=== PATIENT | female | born 1955 | race African-American/Black ===

== ENCOUNTER → 2018-10-19 | Outpatient (CLI) | payer BC, OTHER ==
[~2018-10-19] MED LIST: CLARITIN 1010 MG/TAB PO; LYRICA 150MG C150 MG PO; MIRTAZAPINE7.5 MG PO; PLAQUENIL 200M200 MG PO; PRINIVIL40 MG PO; SAVELLA50 MG PO; SINGULAIR 110 MG/TAB PO; TOPROL XL100 MG PO
== END ==
LOC: COL.RAD 06:29
DX: M54.9 Dorsalgia, unspecified (principal); R53.83 Other fatigue; R11.2 Nausea with vomiting, unspecified; R63.4 Abnormal weight loss
CPT/HCPCS: A9541

== ENCOUNTER → 2019-09-02 | Outpatient (CLI) | payer BC, OTHER | LOC: ZCOL.LAB 09:49 | DX: S81.801A Unspecified open wound, right lower leg, initial encounter (principal) ==